=== PATIENT | female | born 1950 | race Caucasian/White ===

== ENCOUNTER 2017-11-21 14:43 | Emergency (ER) | payer SELFPAY ==
[2017-11-21 15:22] VITALS: BP 141/81
--- NOTE | 2017-11-21 15:28 | UC ---
Respiratory Complaint HPI - HPI Summary HPI Summary: Pt presents with productive cough and chest congestion that began 2 days ago, but much worse yesterday. She is SOB with excessive talking or walking long distances. Says she had PNA in the past and this feels similar. Unsure if fever - has not taken her temperature. Denies chills, sore throat, chest pain, or dizziness. - History of Current Complaint Chief Complaint: UCRespiratory Stated Complaint: CHEST CONGESTION Time Seen by Provider: 11/21/17 15:27 Hx Obtained From: Patient Hx Last Menstrual Period: POST MENAPAUSAL Onset/Duration: Sudden Onset Timing: Constant Severity Initially: Mild Severity Currently: Mild Pain Intensity: 2 Pain Scale Used: 0-10 Numeric Character: Cough: Productive - Allergies/Home Medications Allergies/Adverse Reactions: Allergies Allergy/AdvReac Type Severity Reaction Status Date / Time No Known Allergies Allergy Verified 11/21/17 15:22 Home Medications: Home Medications Amitriptyline TAB* [Elavil TAB*] 1 tab PO BID 11/21/17 [History Confirmed ] Meloxicam [Mobic] 1 tab PO DAILY PRN 11/21/17 [History Confirmed 11/21/17] PMH/Surg Hx/FS Hx/Imm Hx Previously Healthy: Yes - Surgical History Surgical History: None - Family History Known Family History: Positive: None - Social History Occupation: Retired Lives: With Family Alcohol Use: Weekly Substance Use Type: None Smoking Status (MU): Never Smoked Tobacco Review of Systems Constitutional: Negative Skin: Negative Eyes: Negative ENT: Negative Respiratory: Shortness Of Breath, Cough Cardiovascular: Negative Gastrointestinal: Negative Musculoskeletal: Negative Neurological: Negative Psychological: Negative All Other Systems Reviewed And Are Negative: Yes Physical Exam - Summary Physical Exam Summary: GENERAL: NAD. WDWN. No pain distress. SKIN: No rashes, sores, ulcers, masses, lesions. HEENT: Head: AT/NC Eyes: Conjunctiva clear without inflammation or discharge. Ears: Hearing grossly normal. TMs intact, no bulging, erythema, or edema. Nose: Nasal mucosa pink and moist. NTTP maxillary and frontal sinus. Throat: Posterior oropharynx without exudates, erythema, or tonsillar enlargement. Uvula midline. NECK: Supple. Nontender. No lymphadenopathy. CHEST: Moderate wheezing throughout. LLL crackles. No accessory muscle use. Breathing comfortably and in no distress. CV: RRR. Without m/r/g. Pulses intact. Brisk cap refill. NEURO: Alert. CN II-XII grossly intact. PSYCH: Age appropriate behavior. Triage Information Reviewed: Yes Vital Signs: Initial Vital Signs Temp 99.3 F 11/21/17 15:13 Pulse 106 11/21/17 15:13 Resp 17 11/21/17 15:13 BP 141/81 11/21/17 15:13 Pulse Ox 99 11/21/17 15:13 Diagnostic Evaluation - Laboratory O2 Sat by Pulse Oximetry: 99 Re-Evaluation - Re-Evaluation First Eval Change: Improved Comment: Improved s/p Duoneb - pt reports significantly easier to breathe Respiratory Course/Dx - Course Course Of Treatment: XR: IMPRESSION: FOCAL DENSITY SEEN OVERLYING THE LATERAL LEFT LUNG BASE IS NOT IDENTIFIED ON THE LATERAL. VIEW CHEST X-RAY AND MAY POSSIBLY BE A RIB END. PARENCHYMAL DENSITY IS NOT ENTIRELY. EXCLUDED ON THIS CHEST X-RAY ALONE. Given clinical exam - will treat as if PNA. - Differential Dx/Diagnosis Provider Diagnoses: LLL Pneumonia Discharge - Discharge Plan Condition: Stable Disposition: HOME Prescriptions: Albuterol HFA INHALER* [Ventolin HFA Inhaler*] 1 - 2 puff INH Q6H PRN #1 mdi PRN Reason: Sob/Wheezing Levofloxacin TAB* [Levaquin TAB*] 500 mg PO DAILY #5 tab Patient Education Materials: Bacterial Pneumonia (DC) Referrals: No Primary Care Phys,NOPCP [Primary Care Provider] - Additional Instructions: If you develop a fever, shortness of breath, chest pain, new or worsening symptoms - please call your PCP or go to the ED.
[2017-11-21] MEDS ORDERED: Albuterol/Ipratropium NEB.SOL* Albuterol 2.5 MG/Ipratropium 0.5 MG 3 ML INH ONE (15:31)
--- NOTE | 2017-11-21 16:09 | RAD ---
INDICATION: Cough and congestion COMPARISON: None TECHNIQUE: PA and lateral views of the chest were obtained. FINDINGS: The heart and mediastinum are normal in size and contour. At the lateral aspect of the left lung base there is a 1.3 cm density seen on the AP view that cannot be located on the lateral view. The lungs are otherwise lungs are grossly clear. There is no evidence of large pleural effusion. Visualized bones are normal for the patient's age. There is no radiographic evidence of free air beneath the diaphragm IMPRESSION: FOCAL DENSITY SEEN OVERLYING THE LATERAL LEFT LUNG BASE IS NOT IDENTIFIED ON THE LATERAL VIEW CHEST X-RAY AND MAY POSSIBLY BE A RIB END. PARENCHYMAL DENSITY IS NOT ENTIRELY EXCLUDED ON THIS CHEST X-RAY ALONE.
== END 2017-11-21 16:30 | disposition home or self-care (01) ==
LOC: UCEAST 14:43
DX: J18.9 Pneumonia, unspecified organism (principal)
CPT/HCPCS: 71046; 99202; A9270-GY; G0463